=== PATIENT | male | born 1990 | race Caucasian/White ===

== ENCOUNTER 2018-03-07 19:11 | Emergency (ER) | payer MEDICAID ==
[~2018-03-07] VITALS: Ht 165.1 cm; Wt 99.8 kg
[~2018-03-07 19:11] MED LIST: IBUP-974 PO
[2018-03-07 19:15] VITALS: BP 133/107
--- NOTE | 2018-03-07 19:17 | NUR ---
PT AMBULATORY TO ER LOBBY W/ STEADY GAIT IN STABLE CONDITION.
--- NOTE | 2018-03-07 19:55 | NUR ---
PT TAKEN TO BED 10
[2018-03-07] MEDS ORDERED: NACL 0.9% 1,000 ML IV ONE (20:05)
--- NOTE | 2018-03-07 20:20 | NUR ---
PT PRESENTS TO ED FOR EVALUATION OF HIGH BP. PT STATED GOT BP CHECK 3 HRS AGO AND BP ELEVATED. AA0 X4, GCS 15, ABLE TO SPEAK WITH FULL COMPLETE SENTENCES. PUPILS PERRLA 3/3 . RESPIRATIONS EVEN AND UNLABORED, BL LUNG CLEAR. SKIN WARM/PINK/DRY, +PMSC. ABDOMEN SOFT, NON DISTENDED, ACTIVE BOWEL SOUND X4. FRONT DESK COORDINATOR SR, BP WNL. NO ACUTE DISTRESS AT THIS TIME. WILL CONTINUE TO MONITOR
--- NOTE | 2018-03-07 20:23 | NUR ---
X-Ray at bedside.
[2018-03-07 20:28] LABS: BASOPHILS # (AUTO) 0.1 K/uL (0.00-0.22); BASOPHILS % (AUTO) 0.6 % (0.0-2.0); EOSINOPHILS # (AUTO) 0.2 K/uL (0-0.4); EOSINOPHILS % (AUTO) 1.9 % (0.0-4.0); HEMATOCRIT 38.7 % (36-52); HEMOGLOBIN 12.9 g/dL (12.0-18.0); LYMPHOCYTES # (AUTO) 2.5 K/uL (2.0-11.5); LYMPHOCYTES % (AUTO) 26.2 % (20.5-51.1); MEAN CORPUSCULAR HEMOGLOBIN 28 pg (27-31); MEAN CORPUSCULAR HGB CONC 33 g/dL (33-37); MEAN CORPUSCULAR VOLUME 84.7 fL (80-94); MONOCYTES # (AUTO) 0.9 K/uL (0.8-1.0); MONOCYTES % (AUTO) 9.2 % (1.7-9.3); NEUTROPHILS # (AUTO) 5.9 K/uL (1.8-7.7); NEUTROPHILS % (AUTO) 62.1 % (42.2-75.2); PLATELET COUNT (AUTO) 324 K/uL (140-450); RED BLOOD CELL COUNT(AUTO) 4.56 MIL/uL (4.20-6.10); RED CELL DISTRIBUTION WIDTH 14.5 % (11.6-13.7); WHITE BLOOD COUNT (AUTO) 9.5 K/uL (4.8-10.8)
[2018-03-07 20:50] LABS: ALBUMIN 3.9 g/dL (3.4-5.0); ANION GAP 11.7 (8-16); CARBON DIOXIDE 24.8 mmol/L (21-32); CREATININE 0.9 mg/dL (0.7-1.3); POTASSIUM 3.5 mmol/L (3.5-5.1); TOTAL BILIRUBIN 0.7 mg/dL (0.0-1.0)
--- NOTE | 2018-03-07 21:38 | NUR ---
Dr. Fuentes evaluating patient at bedside.
[2018-03-07 21:51] VITALS: BP 116/65
--- NOTE | 2018-03-07 21:51 | NUR ---
Patient discharged with v/s stable. Written and verbal after care instructions given and explained. Patient verbalized understanding. Ambulatory with steady gait. All questions addressed prior to discharge. Advised to follow up with PMD.
== END 2018-03-07 21:51 | disposition home or self-care (01) ==
LOC: MED 19:11
DX: F41.9 Anxiety disorder, unspecified (principal); R07.89 Other chest pain; Z79.1 Long term (current) use of non-steroidal anti-inflammatories (NSAID)
CPT/HCPCS: 36415; 71045; 80053; 83880; 84484; 85025; 93005; 99284; J7030; Q0092